=== PATIENT | female | born 1980 | race Caucasian/White ===

== ENCOUNTER 2016-09-15 07:31 | Observation (INO) | payer OTHER ==
[~2016-09-15] VITALS: Ht 160 cm; Wt 91.8 kg
[2016-09-15] MEDS ORDERED: TERBUTALINE 1 MG/ML, 1ML ONE (07:34)
[2016-09-15 08:00] VITALS: BP 131/81
[2016-09-15] MEDS ORDERED: PREN-3 PO (08:38)
== END 2016-09-15 09:30 | disposition home or self-care (01) ==
LOC: LDOP 07:31 → LDIP 08:14
PROVIDERS: ADMIT Obstetrics & Gynecology; ATTEND Obstetrics & Gynecology
DX: O26.893 Other specified pregnancy related conditions, third trimester (principal); O24.419 Gestational diabetes mellitus in pregnancy, unspecified control; O99.333 Smoking (tobacco) complicating pregnancy, third trimester; Z3A.37 37 weeks gestation of pregnancy
CPT/HCPCS: 59025; 76815; 81003; G0378

== ENCOUNTER 2016-09-24 21:35 | Inpatient (IN) | payer OTHER ==
[~2016-09-24] VITALS: Ht 157.5 cm; Wt 92.0 kg
[~2016-09-24 21:35] MED LIST: PREN-3 PO
[2016-09-24] MEDS ORDERED: OXYTOCIN 30U/ 0.9% NaCL 500ML 500 ML IV ONE (21:52)
[2016-09-24] MEDS: LACTATED RINGERS 1,000 ML IV SCH (21:52)
[2016-09-24] MEDS: D5%-LACTATED RINGERS 1,000 ML IV SCH (21:52)
[2016-09-24] MEDS ORDERED: OXYTOCIN 30U/ 0.9% NaCL 500ML 500 ML ONE (21:59)
[2016-09-24] MEDS ORDERED: NEWBORN KIT ONE (21:59)
[2016-09-24] MEDS ORDERED: FENTANYL PF 100 MCG/2ML IV PRN (22:00)
[2016-09-24] MEDS ORDERED: ONDANSETRON 2MG/ML, 2ML IVPush PRN (22:00)
[2016-09-24] MEDS ORDERED: CALCIUM CARBONATE 500 MG TAB.CHEW PO PRN (22:00)
[2016-09-24] MEDS ORDERED: TERBUTALINE 1 MG/ML, 1ML IVPush PRN (22:00)
[2016-09-24] MEDS ORDERED: FENTANYL PF 100 MCG/2ML IVPush PRN (22:00)
[2016-09-24] MEDS ORDERED: FENTANYL PF 100 MCG/2ML ONE (22:33)
[2016-09-24] MEDS: OXYTOCIN 30U/ 0.9% NaCL 500ML 500 ML IV SCH (23:08)
[2016-09-24] MEDS ORDERED: RHOGAM FROM BLOOD BANK 1 NOTE EA IM/IV ONE (23:30)
[2016-09-24] MEDS ORDERED: CARBOPROST TROMETHAMINE 250 MCG/ML, 1ML IM PRN (23:30)
[2016-09-24] MEDS ORDERED: DIPH,PERTUSS(ACELL),TET VAC/PF NC IM-VACC PRN (23:30)
[2016-09-24] MEDS ORDERED: MEASLES,MUMPS&RUBELLA VACC/PF 0.5 ML SQ PRN (23:30)
[2016-09-24] MEDS ORDERED: DOCUSATE 100 MG CAPSULE PO PRN (23:30)
[2016-09-24] MEDS ORDERED: MISOPROSTOL 200 MCG TABLET PR PRN (23:30)
[2016-09-24] MEDS ORDERED: OXYcodone/APAP 5/325MG TABLET PO PRN ×2 (23:30)
[2016-09-24] MEDS ORDERED: ACETAMINOPHEN 325 MG TABLET PO PRN (23:30)
[2016-09-24] MEDS ORDERED: IBUPROFEN 600 MG TABLET PO PRN (23:30)
[2016-09-24] MEDS ORDERED: METHYLERGONOVINE 0.2 MG/ML IM PRN (23:30)
[2016-09-25 01:45] VITALS: BP 142/79
[2016-09-25 05:45] VITALS: BP 138/88
[2016-09-25] MEDS: LACTATED RINGERS 1,000 ML IV SCH (05:52)
[2016-09-25] MEDS: D5%-LACTATED RINGERS 1,000 ML IV SCH (05:52)
[2016-09-25 08:49] VITALS: BP 130/82
[2016-09-25] MEDS ORDERED: PRENATAL VIT/IRON/FA 1 EACH TABLET PO SCH (09:00)
[2016-09-25] MEDS: OXYTOCIN 30U/ 0.9% NaCL 500ML 500 ML IV SCH (09:08)
[2016-09-25] MEDS ORDERED: RHOGAM FROM BLOOD BANK 1 NOTE EA IM/IV ONE (10:00)
[2016-09-25 12:26] VITALS: BP 136/81
[2016-09-25 16:25] VITALS: BP 132/82
[2016-09-25 20:00] VITALS: BP 139/90
[2016-09-26 02:00] VITALS: BP 128/88
[2016-09-26 08:20] VITALS: BP 134/85
[2016-09-26] MEDS ORDERED: IBUP-1222 PO (10:14)
[2016-09-26] MEDS ORDERED: OXYC-302 PO (10:15)
== END 2016-09-26 11:25 | disposition home or self-care (01) | DRG 775 ==
LOC: LDOP 21:35 → LDIP 22:12 → 2NW 09-25 01:50
PROVIDERS: ADMIT Obstetrics & Gynecology; ATTEND Obstetrics & Gynecology
PROC: 10E0XZZ Delivery of Products of Conception, External Approach (ICD-10-PCS; principal; 2016-09-24)
PROC: 0KQM0ZZ Repair Perineum Muscle, Open Approach (ICD-10-PCS; 2016-09-24)
PROC: 3E0234Z Introduction of Serum, Toxoid and Vaccine into Muscle, Percutaneous Approach (ICD-10-PCS; 2016-09-25)
DX: O24.429 Gestational diabetes mellitus in childbirth, unspecified control (principal); Z37.0 Single live birth; Z3A.39 39 weeks gestation of pregnancy; O36.8930 Maternal care for other specified fetal problems, third trimester, not applicable or unspecified; O26.893 Other specified pregnancy related conditions, third trimester; Z67.11 Type A blood, Rh negative; Z23 Encounter for immunization; O70.1 Second degree perineal laceration during delivery
CPT/HCPCS: 36415; 85025; 85461; 86850; 86900; J2790